=== PATIENT | female | born 1950 | race Two or more races ===

== ENCOUNTER 2019-03-17 17:39 | Emergency (ER) | payer SELFPAY ==
[~2019-03-17] VITALS: Ht 167.6 cm; Wt 66.0 kg
[2019-03-17 17:57] VITALS: BP 139/79
== END 2019-03-17 19:52 | disposition left against medical advice (07) ==
LOC: ER 17:39
DX: F41.9 Anxiety disorder, unspecified (principal); Z53.21 Procedure and treatment not carried out due to patient leaving prior to being seen by health care provider